=== PATIENT | female | born 1940 | race Asian ===

== ENCOUNTER → 2022-02-26 12:06 | Outpatient (BNVA) | payer OTHER, SELFPAY | PROVIDERS: PCP Internal Medicine; Visit Provider Internal Medicine | DX: M79.602 Pain in left arm (principal) | CPT/HCPCS: 93005; 99202 ==

== ENCOUNTER → 2022-10-24 14:49 | Outpatient (BNVA) | payer OTHER, SELFPAY | PROVIDERS: PCP Internal Medicine; Referring Provider Internal Medicine; Visit Provider Internal Medicine | DX: R07.2 Precordial pain (principal); R94.31 Abnormal electrocardiogram [ECG] [EKG]; I10 Essential (primary) hypertension | CPT/HCPCS: 99212 ==

== ENCOUNTER → 2022-10-25 15:10 | Outpatient (REF) | payer OTHER, SELFPAY ==
--- NOTE | 2022-10-25 15:13 | CA_ITS ---
Transthoracic Echocardiogram Patient (Last, First, Middle): Justen Macias, Gender: Female Date of : 1940 Age: 82 Procedure Date: 10/25/2022 Procedure Type: Transthoracic Echocardiogram Location: OP Height: 157. cm Weight: 59. kg BSA: 1.59 m2 Heart Rate: bpm BP: 128 / 80 mmHg Assignment Officer: TO Referring MD: Neil Robert MD Symptoms: R07.2 - Precordial pain Study Quality: Adequate ECG Rhythm: Sinus Conclusions: - The left ventricular systolic function is normal. The calculated ejection fraction is 67% by biplane method. - No obvious valvular pathology seen on this study. Findings Left Ventricle Normal left ventricular cavity size. There is normal left ventricular wall thickness. The left ventricular systolic function is normal. The calculated ejection fraction is 67% by biplane method. There is no evidence of regional wall motion abnormalities. Evidence suggests grade I (mild) diastolic dysfunction. LV peak GLS -21.4%. Right Ventricle Normal right ventricular cavity size and systolic function. Atria Both atria are normal in size. Aortic Valve There is a normal trileaflet aortic valve. There is no aortic valve stenosis. There is no aortic valve regurgitation. Mitral Valve There is mild mitral annular calcification. There is no mitral valve regurgitation. There is no mitral valve stenosis. Pulmonic Valve The pulmonic valve is likely normal. Tricuspid Valve There is trace tricuspid valve regurgitation. There is no evidence of pulmonary hypertension. Great Vessels The asc aorta is normal in size. Venous The inferior vena cava is normal in size and collapses greater than 50% with inspiration. Pericardium/Pleural There is no evidence of pericardial effusion. Prior Study Comparison No prior study available for comparison. Recommendations, Care & Conclusions No obvious valvular pathology seen on this study. Measurements 2D Linear Measurements IVSd: 0.98 0.6-0.9/0.6-1.0 cm LVIDd: 4.08 3.9-5.3/4.2-5.9 cm LVIDd Index: 2.57 2.4-3.2/2.2-3.1 cm/m2 LVIDs: 2.66 2.0-3.6 cm LVPWd: 0.90 0.7-1.1 cm LA Diam: 2.90 2.7-3.8/3.0-4.0 cm LAIDs Index: 1.82 1.5-2.3 cm/m2 LV Mass: 149.65 67-162/88-224 g LV Mass Index: 94.12 43-95/49-115 g/m2 LVOT Diam: 1.80 3.0+(-)1.3 cm 2D Systolic Function EF 4C: 66.20 >55% EF 2C: 68.70 >55% EF BiP: 67.20 >55% Mitral Valve MV VTI: 0.35 MV Pk [place]: 1.10 MV Mn [place]: 0.64 MV Pk Grad: 5.00 MV Mn Grad: 2.00 MV Pk E: 0.91 MV PK A: 0.88 MV Decel Time: 277.00 E/A: 1.00 E'Lateral: 6.31 E'Medial: 6.09 E/E' Med: 14.90 E/E' Lat: 14.40 PHT: 81.00 MVA PHT: 2.72 MVA Continuity: 2.09 Decel [place]: 3.28 Aortic Valve AoV Pk [place]: 1.38 AoV Mn [place]: 0.99 AoV VTI: 0.31 AoV Pk Grad: 8.00 Aov Mn Grad: 4.00 YOSHI Cont.VTI: 2.37 LVOT LVOT Pk [place]: 1.26 LVOT Mn [place]: 0.87 LVOT VTI: 0.29 LVOT Pk Grad: 6.00 LVOT Mn Grad: 3.00 LVOT Diam: 1.80 LVOT Area: 2.54 Diastolic Function MV Pk E: 0.91 MV Pk A: 0.88 E/A: 1.00 E'Medial: 6.09 E/E' Med: 14.90 E' Laterial: 6.31 E/E' Lat: 14.40 Right Ventricle TAPSE (mm): 18.00 TVS' [place]: 13.00 Tricuspid Valve TR Pk [place]: 2.23 TR Pk Grad: 20.00 RA Press: 3.00 RVSP: 23.00 Great Vessels Aorta Sinus of Valsalva: 2.91 2.0-3.[address] [place]: 2.54 1.7-3.4 cm Ao Asc: 3.40 2.1-3.4 cm Updated in Other Vendor System with Status of Final Neil Robert MD electronically signed on 10/26/2022 11:26:02 AM with status of Final
== END ==
LOC: HO.CARD 15:10
PROVIDERS: PCP Internal Medicine; Visit Provider Internal Medicine
DX: R07.2 Precordial pain (principal)
CPT/HCPCS: 93306; 93356

== ENCOUNTER → 2022-10-29 09:50 | Outpatient (BNVA) | payer OTHER, SELFPAY | PROVIDERS: PCP Internal Medicine; Referring Provider Internal Medicine; Visit Provider Internal Medicine | DX: R94.31 Abnormal electrocardiogram [ECG] [EKG] (principal) | CPT/HCPCS: 93005 ==

== ENCOUNTER 2023-07-08 13:24 | Outpatient (REF) | payer OTHER, SELFPAY ==
[2023-07-08 14:38] LABS: Influenza A PCR NEGATIVE (Negative); Influenza B PCR NEGATIVE (Negative); Resp Syncy Virus RNA Qual PCR NEGATIVE (Negative); SARS COV2 PCR INHOUSE NEGATIVE (Negative)
== END 2023-07-08 13:25 | disposition home or self-care (01) ==
LOC: HO.LAB 13:24
PROVIDERS: PCP Internal Medicine; Visit Provider Internal Medicine
DX: J06.9 Acute upper respiratory infection, unspecified (principal); Z11.52 Encounter for screening for COVID-19; Z20.828 Contact with and (suspected) exposure to other viral communicable diseases
CPT/HCPCS: 0241U

== ENCOUNTER 2025-03-28 10:31 | Outpatient (REF) | payer OTHER, SELFPAY ==
--- OUTSIDE RECORDS SUMMARY | 2025-03-28 12:54 | XMS_ITS | Clinical Summary ---
Author Organization [address] [facility] Address [address] [place] [address] Phone Care Team Providers Care Technology Coordinator Name Role Phone Monalisa Ventura MD Primary Care Provider [phone] Allergies Active Allergy Reactions Criticality Noted Date Comments Ferrous Sulfate 02/20/2024 Hydrochlorothiazide 02/20/2024 Ibuprofen GI intolerance 02/20/2024 Penicillins 02/20/2024 Other Reaction(s): Rash/Dermatitis Pravastatin 02/20/2024 Other Reaction(s): Myalgia and Joint Pain Medications amLODIPine (NORVASC) 5 mg tablet Take 1 tablet (5 mg total) by mouth 1 (one) time each day. Active lisinopriL (PRINIVIL,ZESTRI L) 20 mg tablet Take 1 tablet (20 mg total) by mouth 1 (one) time each day. Active rosuvastatin (CRESTOR) 5 mg tablet Take 1 tablet (5 mg total) by mouth 1 (one) time each day. Active cetirizine (ZyrTEC) 10 mg tablet Take 1 tablet (10 mg total) by mouth 1 (one) time each day. Active Active Problems Problem Noted Date Diagnosed Date Anemia 02/23/2024 Arrhythmia 02/23/2024 Fracture of left distal radius 02/23/2024 GERD (gastroesophageal reflux disease) 4 Immunizations Name Administration Dates Next Due COVID-19 (Moderna/Spikevax) 12yo and older 05/31 Surgical History Surgery Date Site/Laterality Comments HYSTERECTOMY N/A PROCEDURE: HISTORICAL HYSTERECTOMY OTHER SURGICAL HISTORY Left PROCEDURE: [place] POST-CATARACT LASER SURGERY OTHER SURGICAL HISTORY Left PROCEDURE: BREAST MASS CORE BIOPSY SPCMN PATHOLGY EXAM Social History Tobacco Use Types Packs/Day Years Used Date Smoking Tobacco: Never Assessed Comments Unknown Sex and Gender Information Value Date Recorded Sex Assigned at Not on file Legal Sex Female 11:19 AM EST Gender Identity Not on file Sexual Orientation Not on file Obstetrics History Last Filed Vital Signs Vital Sign Reading Time Taken Comments Blood Pressure - - Pulse - - Temperature - - Respiratory Rate - - Oxygen Saturation - - Inhaled Oxygen Concentration - - Weight 59 kg (130 lb) 07/15/2024 2:14 PM EST Height 154.9 cm (5' 0.98 ) 07/15/2024 2:14 PM ES T Body Mass Index 24.58 07/15/2024 2:14 PM EST Plan of Treatment Health Maintenance Due Date Last Done Comments DTaP,Tdap,and Td Vaccines (1 - Tdap) 1959 Falls Risk Assessment 06/04/2022 Medicare Annual Wellness Visit 06/04/2022 Osteoporosis Screening (Bone Density Screening) 06/04/2022 Social Influencers of Health Screening 06/04/2022 Depression Screening 07/07/2024 COVID-19 Vaccine ( season) 2025 04/07/2023, 05/31/2022, 10/29/2021, Additional history exists Influenza Vaccine (#1) 2025 , 03/23/2023, 05/08/2022, Additional history exists Hypertension/CHF/CAD Annual BMP Blood Test 12/16/2025 12/16/2024, 07/02/2024 Cholesterol Screening (Lipid Panel) 07/02/2029 07/02/2024 Zoster Vaccines Completed 11/07/2020, 04/0 11/2020, 03/27/2020 RSV Immunization Adult Patients Completed 03/23/2023 Pneumococcal Vaccine: 50+ Years Completed 07/16/2024, 06/19/2018, 11/01/2015 HIB Vaccines Aged Out No longer eligi ble based on patient's age to complete this topic HPV Vaccines Aged Out No longer eligi ble based on patient's age to complete this topic Hepatitis A Vaccines Aged Out No long er eligible based on patient's age to complete this topic Hepatitis B Vaccines Aged Out No long er eligible based on patient's age to complete this topic IPV Vaccines Aged Out No longer eligi ble based on patient's age to complete this topic MMR Vaccines Aged Out No longer eligi ble based on patient's age to complete this topic Meningococcal ACWY Vaccine Aged Out N o longer eligible based on patient's age to complete this topic Meningococcal B Vaccine Aged Out No l onger eligible based on patient's age to complete this topic RSV Immunization Patients Under 20 months Aged Out No longer eligible based on patient's age to complete this topic Varicella Vaccines Aged Out No longer eligible based on patient's age to complete this topic Procedures Procedure Name Priority Date/Time Associated Diagnosis Comments COMPREHENSIVE METABOLIC PANEL Routine 12/16/2024 8:18 AM EDT Pure hypercholesterolemia Essential hypertension, malignant Raynaud's syndrome Pruritus of skin Routine general medical examination at a health care facility LIPID PANEL WITH REFLEX TO DIRECT LDL Routine 07/02/2024 8:56 AM EST Anemia, unspecified Pure hypercholesterolemia Essential hypertension, malignant Pruritus ani Ingrowing nail Arthralgia of right temporomandibular joint from Last 3 Months or Most Recently Relevant to Health Maintenance Results * (ABNORMAL) Comprehensive metabolic panel (12/16/2024 8:18 AM EDT) Sodium 139 133 - 145 mmol/L LAB CHEMISTRY METHOD 12/16/2024 10:05 AM [facility] Potassium 4.8 3.5 - 5.5 mmol/L LAB CHEMISTRY METHOD 12/16/2024 10:05 AM [facility] Chloride 108 96 - 110 mmol/L LAB CHEMISTRY METHOD 12/16/2024 10:05 AM [facility] CO2 26 21 - 32 mmol/L LAB CHEMISTRY METHOD 12/16/2024 10:05 AM [facility] Anion Gap 5 3 - 11 LAB CHEMISTRY METHOD 12/16/2024 10:05 AM [facility] Glucose 95 70 - 100 mg/dL LAB CHEMISTRY METHOD 12/16/2024 10:05 AM [facility] BUN 14 5 - 25 mg/dL LAB CHEMISTRY METHOD 12/16/2024 10:05 AM [facility] Creatinine 0.87 0.50 - 1.10 mg/dL LAB CHEMISTRY METHOD 12/16/2024 10:05 AM [facility] eGFR 65 >=60 mL/min/1. 73m2 LAB CHEMISTRY METHOD 12/16/2024 10:05 AM [facility] Comment:Calculation based on the Chronic Kidney Disease Epidemiology Collaboration (CKD-EPI) equation refit without adjustment for race. BUN/Creatinine Ratio 16.1 LAB CHEMISTRY METHOD 12/16/2024 10:05 AM [facility] Calcium 9.0 8.5 - 10.5 mg/dL LAB CHEMISTRY METHOD 12/16/2024 10:05 AM [facility] AST (SGOT) 22 10 - 42 unit/L LAB CHEMISTRY METHOD 12/16/2024 10:05 AM [facility] ALT (SGPT) 25 10 - 60 unit/L LAB CHEMISTRY METHOD 12/16/2024 10:05 AM [facility] Alkaline Phosphatase 129(H) 42 - 121 unit/L LAB CHEMISTRY METHOD 12/16/2024 10:05 AM [facility] Total Protein 6.9 6.0 - 8.0 g/dL LAB CHEMISTRY METHOD 12/16/2024 10:05 AM [facility] Albumin 3.6 3.2 - 5.0 g/dL LAB CHEMISTRY METHOD 12/16/2024 10:05 AM [facility] Total Bilirubin 0.6 0.0 - 1.4 mg/dL LAB CHEMISTRY METHOD 12/16/2024 10:05 AM [facility] Blood Venous blood specimen / Unknown Venipuncture / Unknown 12/16/2024 8:18 AM EDT 12/16/2024 9:09 AM EDT us Monalisa Ventura MD LAB BLOOD ORDERABLES Final Re sult [facility] [address] [place] [address], [place] [phone] * Lipid panel with reflex to direct LDL (07/02/2024 8:56 AM EST) Cholesterol 144 0 - 200 mg/dL LAB CHEMISTRY METHOD 07/02/2024 11:08 AM EST [facility] Triglycerides 138 0 - 150 mg/dL LAB CHEMISTRY METHOD 07/02/2024 11:08 AM EST [facility] HDL 52 >=40 mg/dL LAB CHEMISTRY METHOD 07/02/2024 11:08 AM EST [facility] LDL Calculated 64 0 - 100 mg/dL LAB CHEMISTRY METHOD 07/02/2024 11:08 AM EST [facility] VLDL Cholesterol Abhinav 27.6 mg/dL LAB CHEMISTRY METHOD 07/02/2024 11:08 AM EST [facility] Non HDL Chol. (LDL+VLDL) 92 <145 mg/dL LAB CHEMISTRY METHOD 07/02/2024 11:08 AM EST [facility] Chol/HDL Ratio 2.8 0.0 - 4.4 LAB CHEMISTRY METHOD 07/02/2024 11:08 AM EST [facility] Blood Venous blood specimen / Unknown Venipuncture / Unknown 07/02/2024 8:56 AM EST 07/02/2024 10:04 AM EST us Monalisa Ventura MD LAB BLOOD ORDERABLES Final Re sult [facility] [address] [place] [address], [place] [phone] from Last 3 Months or Most Recently Relevant to Health Maintenance Insurance [employer] Member Subscriber Plan / Payer (Ef fective 2014-Present) Name:Justen Macias Relation to Subscriber:Self Name:Justen Macias Payer ID:[id number] Group ID:[id number] Type:Not on file Address: [place] [address] [address] [phone] Care Teams Technology Coordinator Relationship Specialty Start Date End Date Monalisa Ventura MD [address] [place] [address] [place] [address] PCP - General 12/12/23
[2025-03-28 13:53] LABS: Alanine Aminotransferase 23 U/L (0-31); Albumin Level 4.4 g/dL (3.5-5.0); Alkaline Phosphatase 110 U/L (39-117); Anion Gap 8 (12-20); Aspartate Amino Transferase 28 U/L (5-31); Blood Urea Nitrogen 13 mg/dL (9-16); Calcium 9.6 mg/dL (8.4-10.2); Carbon Dioxide 28 mmol/L (22-29); Chloride 103 mmol/L (96-108); Estimated Glomerular Filt Rate > 60; Potassium 4.9 mmol/L (3.3-5.1); Sodium 134 mmol/L (135-145); Total Protein 7.2 g/dL (6.5-8.0)
== END 2025-03-28 10:32 | disposition home or self-care (01) ==
LOC: HO.10HDL 10:31
PROVIDERS: Visit Provider Internal Medicine
DX: E87.1 Hypo-osmolality and hyponatremia (principal); E87.5 Hyperkalemia; I10 Essential (primary) hypertension; M62.81 Muscle weakness (generalized)
CPT/HCPCS: 36415; 80053

== ENCOUNTER 2025-05-23 11:12 | Outpatient (REF) | payer OTHER, SELFPAY ==
[2025-05-23 13:20] LABS: Blood Urea Nitrogen 16 mg/dL (9-16); Estimated Glomerular Filt Rate 49
== END 2025-05-23 11:13 | disposition home or self-care (01) ==
LOC: HO.LAB 11:12
PROVIDERS: PCP Internal Medicine; Visit Provider Surgery
DX: R10.11 Right upper quadrant pain (principal); R63.8 Other symptoms and signs concerning food and fluid intake
CPT/HCPCS: 36415; 82565; 84520; 99202

== ENCOUNTER 2025-05-23 11:12 | Outpatient (AMB) | payer OTHER, SELFPAY ==
--- NOTE | 2025-05-23 11:33 | MHC.OFFVIS ---
Vital Signs 05/23/25 11:45 Height 5 ft 3 in Weight 126 lb 8 oz BMI 22.4 BP 151/68 H Blood Pressure Location Lt brachial Position Sitting Pulse 76 Intake Visit Reasons: Gallbladder problems Intake Note: This patient presents for an assessment for cholelithiasis. Pt c/o; reports lost of appetite, RUQ pain, reports weight loss because she is afraid of eating as it causes postprandial pain, denies constipation or diarrhea. [facility] radiology: US abdomen Complete 04/26/2025 Fashion Consultant Selling Required: No Accompanied by: Family/Other Allergies penicillin V Allergy (Unknown, Verified 05/23/25 11:46) rash ferrous sulfate Adverse Reaction (Unknown, Verified 05/23/25 11:46) constipation pravastatin Adverse Reaction (Unknown, Verified 05/23/25 11:46) joint pains Motrin Adverse Reaction (Unknown, Uncoded 05/23/25 11:46) gastritis HPI HPI Gallbladder problems: Details: [age] year old female referred for gallbladder polyps. She had an abdominal ultrasound last month. This shows adenomyosis of the gallbladder with small polyps. There were no gallstones. She does state that she has been having pain on this area for the past 3 weeks. She says that she has afraid to eat as she think that eating may cause the pain. She does admit that the pain seems to be on the lower most right ribs mostly. Denies any nausea or vomiting. [facility] Medical History (Updated 05/23/25 @ 11:38 by Sanjay Figueredo MD) Adenomyosis, gallbladder Essential hypertension Surgical History History of breast biopsy (~1988) History of hysterectomy (~1988) History of cardiac catheterization (~2009) Family History Father No problems noted. Mother No problems noted. Social History Patient Tobacco Use Status: Never used Tobacco Review of Systems Const Denies chills and Denies fever(s) Card Denies chest pain, Denies dyspnea and Denies dyspnea on exertion Resp Denies cough, Denies dyspnea and Denies dyspnea on exertion GI Denies hematochezia and Denies change in bowel habits Denies hematuria Musc Denies back pain and Denies limited range of motion Neuro Denies focal weakness and Denies convulsions Psych Denies depression and Denies mood swings Physical Exam Const General: comfortable and no acute distress Orientation/consciousness: patient oriented x3 Neck Neck: Yes no lymphadenopathy Chest Other: Has point tenderness on the lower most ribs on the right side Resp Auscultation: clear to auscultation bilaterally Cardio Rhythm: regular rhythm GI Other: Has point tenderness on the lower most ribs on the right side Palpation (GI): Soft to palpation, nontender and no guarding Neuro General: patient oriented x3 Assessment & Plan Assessment & Plan (1) Adenomyosis, gallbladder: Code(s): K82.8 - Other specified diseases of gallbladder Category: Medical Plan: She had an ultrasound showing gallbladder polyps which were very small. The largest was 0.4 cm. She does not require any surgical intervention for this. There were no gallstones either. She does complain of pain on the lower ribcage as well as under the ribs itself. I am going to order for a CAT scan of the abdomen and pelvis. I will see her again in the office after that. I did tell her that currently, there is no indication for cholecystectomy. I am uncertain if her symptoms actually from her right upper quadrant as she does have significant point tenderness on the lower ribs consistent with a costochondritis. I told her to try some NSAIDs for this in the meantime and I will see her in the office to review the CAT scan with her. Orders: Orders CT abdomen pelvis w IV con Today K82.8 - Other specified diseases of gallbladder Blood Urea Nitrogen Today K82.8 - Other specified diseases of gallbladder Creatinine Today K82.8 - Other specified diseases of gallbladder Coding Level of Care Code New Pt Level 3 (41422) Diagnoses Adenomyosis, gallbladder K82.8
[2025-05-23 11:45] VITALS: BP 151/68; PULSE 76; BMI 22.4
== END 2025-05-23 11:54 | disposition home or self-care (01) ==
LOC: HO.HGS 11:13
PROVIDERS: PCP Internal Medicine; Visit Provider Surgery
DX: K82.8 Other specified diseases of gallbladder (principal)
CPT/HCPCS: 99203

== ENCOUNTER 2025-07-05 14:06 | Outpatient (REF) | payer OTHER, SELFPAY ==
[2025-07-05 14:28] LABS: MANUAL DIFF FLAG NO
[2025-07-05 14:50] LABS: Hematocrit 35.7 % (37.0-47.0); Hemoglobin 11.2 g/dl (12.0-16.0); Imm Gran Abs Auto 0.02 X10*3/uL (0.00-0.03); Imm Gran Pct Auto 0.3 % (0.0-0.4); Lymphocytes Absolute Auto 2.4 X10*3/uL (1.2-4.9); Mean Corpuscular HGB Conc 31.4 g/dl (31.0-35.0); Mean Corpuscular Hemoglobin 29.4 pg (27.0-33.0); Mean Corpuscular Volume 93.7 fL (80.0-98.0); NRBC Abs Auto 0.000 X10*3/uL (0.0-0.012); NRBC Pct Auto 0.0 /100WBC (0.0-0.2); Platelet Count 279 X10*3/uL (160-400); Red Blood Count 3.81 X10*6/uL (4.20-5.50); White Blood Count 6.7 X10*3/uL (4.8-10.8)
[2025-07-05 15:16] LABS: Alanine Aminotransferase 22 U/L (0-31); Albumin Level 4.3 g/dL (3.5-5.0); Alkaline Phosphatase 123 U/L (39-117); Anion Gap 11 (12-20); Aspartate Amino Transferase 25 U/L (5-31); Blood Urea Nitrogen 13 mg/dL (9-16); Calcium 9.4 mg/dL (8.4-10.2); Carbon Dioxide 26 mmol/L (22-29); Chloride 111 mmol/L (96-108); Cholesterol 164 mg/dL (<200); Estimated Glomerular Filt Rate 55; HDL Cholesterol 51 mg/dL (>40); Potassium 5.4 mmol/L (3.3-5.1); Sodium 143 mmol/L (135-145); Total Protein 7.2 g/dL (6.5-8.0); Triglycerides 160 mg/dL (<150)
--- OUTSIDE RECORDS SUMMARY | 2025-07-05 17:55 | XMS_ITS | Clinical Summary ---
Author Organization 175 [facility] Address [address] [place] [address] Phone Care Team Providers Care Forging Machine Operator Name Role Phone Monalisa Ventura MD Primary Care Provider [phone] Allergies Active Allergy Reactions Criticality Noted Date [...] 02/23/2024 GERD (gastroesophageal reflux disease) 4 Immunizations Immunization Administration Dates Next Due COVID-19 (Moderna/Spikevax) 12yo and older 05/31 Surgical History Surgery Date Site/Laterality Comments HYSTERECTOMY N/A PROCEDURE: HISTORICAL HYSTERECTOMY OTHER SURGICAL HISTORY Left PROCEDURE: [place] POST-CATARACT LASER SURGERY OTHER SURGICAL HISTORY Left PROCEDURE: BREAST MASS CORE BIOPSY SPCMN PATHOLGY EXAM Social History Tobacco Use Types Packs/Day Years Used Date Smoking Tobacco: Never Assessed Comments Unknown Sex and Gender Information Value Date Recorded Sex Assigned at Not on file Legal Sex Female 11:19 AM EST Gender Identity Not on file Sexual Orientation Not on file Last Filed Vital Signs Vital Sign Reading [...] 2025 , 03/23/2023, 05/08/2022, Additional history exists Cholesterol Screening (Lipid Panel) 07/02/2029 07/02/2024 Zoster [...] Procedure Name Priority Date/Time Associated Diagnosis Comments LIPID PANEL WITH REFLEX TO DIRECT LDL Routine 07/02/2024 8:56 AM EST Anemia, unspecified Pure hypercholesterolemia Essential hypertension, malignant Pruritus ani Ingrowing nail Arthralgia of right temporomandibular joint from Last 3 Months or Most Recently Relevant to Health Maintenance Results * Lipid panel with reflex to direct LDL (07/02/2024 8:56 AM EST) Cholesterol 144 0 - 200 mg/dL LAB CHEMISTRY METHOD 07/02/2024 11:08 AM [facility] Triglycerides 138 0 - 150 mg/dL LAB CHEMISTRY METHOD 07/02/2024 11:08 AM [facility] HDL 52 >=40 mg/dL LAB CHEMISTRY METHOD 07/02/2024 11:08 AM [facility] LDL Calculated 64 0 - 100 mg/dL LAB CHEMISTRY METHOD 07/02/2024 11:08 AM [facility] VLDL Cholesterol Abhinav 27.6 mg/dL LAB CHEMISTRY METHOD 07/02/2024 11:08 AM [facility] Non HDL Chol. (LDL+VLDL) 92 <145 mg/dL LAB CHEMISTRY METHOD 07/02/2024 11:08 AM [facility] Chol/HDL Ratio 2.8 0.0 - 4.4 LAB CHEMISTRY METHOD 07/02/2024 11:08 AM [facility] Blood Venous blood specimen / Unknown Venipuncture / Unknown 07/02/2024 8:56 AM EST 07/02/2024 10:04 AM EST us Monalisa Ventura MD LAB BLOOD ORDERABLES Final Re sult [facility] [address] [place] [address], from Last 3 Months or Most Recently Relevant to Health Maintenance Insurance [employer] Member Subscriber Plan / Payer (Ef fective 2014-Present) Name:Justen Macias Relation to Subscriber:Self Name:Justen Macias Payer ID:[id number] Group ID:[id number] Type:Not on file Address: [place] [address] [address] [phone] Care Teams Forging Machine Operator Relationship Specialty Start Date End Date Monalisa Ventura MD [address] [place] [address] [place] [address] PCP - General 12/12/23
== END 2025-07-05 14:07 | disposition home or self-care (01) ==
LOC: HO.LAB 14:06
PROVIDERS: PCP Internal Medicine; Visit Provider Internal Medicine
DX: I10 Essential (primary) hypertension (principal); E78.00 Pure hypercholesterolemia, unspecified; R60.0 Localized edema; Z13.21 Encounter for screening for nutritional disorder
CPT/HCPCS: 36415; 80053; 80061; 82652; 85025